=== PATIENT | female | born 1990 | race Caucasian/White ===

== ENCOUNTER 2018-06-28 22:02 | Emergency (ER) | payer OTHER ==
[2018-06-28] MEDS: DEXAMETHASONE 10 MG/ML 1 ML INJ IM (23:35)
[2018-06-28] MEDS: ONDANSETRON (ODT) 4 MG TAB ODT (23:47)
[2018-06-29] MEDS: ONDANSETRON (ODT) 4 MG TAB ODT (00:31)
== END 2018-06-29 00:33 | disposition home or self-care (01) ==
LOC: FTE 22:02
DX: L50.9 Urticaria, unspecified (principal); R40.2412 Glasgow coma scale score 13-15, at arrival to emergency department
CPT/HCPCS: 96372; 99284-25